=== PATIENT | female | born 1955 | race Caucasian/White ===

== ENCOUNTER 2020-07-31 10:17 | Outpatient (CLI) | payer MEDICARE, SELFPAY | END 2020-07-31 10:18 | disposition home or self-care (01) | LOC: ANHCOVIDVC 10:17 | PROVIDERS: PCP Nurse Practitioner Adult Health | DX: Z23 Encounter for immunization (principal) | CPT/HCPCS: 0001A; 91300 ==

== ENCOUNTER 2020-08-21 10:15 | Outpatient (CLI) | payer MEDICARE, SELFPAY | END 2020-08-21 10:16 | disposition home or self-care (01) | PROVIDERS: PCP Nurse Practitioner Adult Health | DX: Z23 Encounter for immunization (principal) | CPT/HCPCS: 0002A; 91300 ==

== ENCOUNTER 2020-12-11 14:55 | Outpatient (CLI) | payer MEDICARE, SELFPAY ==
--- NOTE | ~2020-12-11 | MM_ITS ---
EXAMINATION: MM screening wendy BI w ramakrishna HISTORY: Screening mammogram TECHNIQUE: Craniocaudal and mediolateral oblique 3-D tomosynthesis images were obtained and synthetic 2-D images were generated. CAD analysis was submitted and interpreted. COMPARISON: 09/19/2018, 02/08/2017 bilateral digital screening mammogram examinations BREAST PARENCHYMAL COMPOSITION: The breasts are heterogeneously dense, which may obscure small masses . FINDINGS: New circumscribed 6 mm opacity situated in the anterior upper left breast on MLO view. Diag nostic left mammogram is recommended, with ultrasound if required. Otherwise there is no evidence of suspicious mass, calcification, or architectural distortion to sug gest malignancy in either breast. There has been no other suspicious interval change. IMPRESSION: 1. New 6 mm upper anterior left breast 6 mm circumscribed opacity 2. Diagnostic left mammogram is recommended, with ultrasound if required BI-RADS Category 0: Incomplete: Needs additional imaging evaluation. Reviewed, dictated and finalized at location A.
== END 2020-12-11 14:56 | disposition home or self-care (01) ==
LOC: ANHIMG 14:58
PROVIDERS: PCP Nurse Practitioner Adult Health; Visit Provider Physician Assistant
DX: Z12.31 Encounter for screening mammogram for malignant neoplasm of breast (principal); R92.8 Other abnormal and inconclusive findings on diagnostic imaging of breast
CPT/HCPCS: 77063; 77067

== ENCOUNTER 2021-01-13 13:50 | Outpatient (CLI) | payer MEDICARE, SELFPAY ==
--- NOTE | ~2021-01-13 | MM_ITS ---
EXAMINATION: MM diagnostic wendy LT w ramakrishna HISTORY: Follow-up left breast asymmetry TECHNIQUE: Additional 3-D tomosynthesis images of the left breast were performed and synthetic 2-D im ages were generated. CAD analysis was submitted and interpreted. COMPARISON: 12/11/2020 BREAST PARENCHYMAL COMPOSITION: Breast composed of scattered areas of fibroglandular density. FINDINGS: Focal asymmetry superior aspect the left breast on MLO view corresponds to a mole indicated by radiopaque marker on current examination. No suspicious masses, calcifications or architectural d istortion are identified in the left breast to suggest malignancy. IMPRESSION: 1. No mammographic evidence for malignancy in the left breast. 2. Routine yearly screening mammogram and regular clinical breast examination are recommended. BI-RADS Category 2: Benign finding(s). Reviewed, dictated and finalized at location A. IMPRESSION: 1. No mammographic evidence for malignancy in the left breast. 2. Routine yearly screening mammogram and regular clinical breast examination a re recommended. BI-RADS Category 2: Benign finding(s).
== END 2021-01-13 13:51 | disposition home or self-care (01) ==
LOC: ANHIMG 13:53
PROVIDERS: PCP Nurse Practitioner Adult Health; Visit Provider Nurse Practitioner Adult Health
DX: R92.8 Other abnormal and inconclusive findings on diagnostic imaging of breast (principal)
CPT/HCPCS: 77061; 77065; G0279

== ENCOUNTER → 2021-04-02 13:59 | Outpatient (CLI) | payer MEDICARE, SELFPAY ==
--- NOTE | ~2021-04-02 | US_ITS ---
EXAMINATION: US pelvic complete w TV DATE: 04/02/2021 14:30 INDICATION: Postmenopausal bleeding TECHNIQUE: Multiple transabdominal and endovaginal sonographic images of the pelvis were obtained. COMPARISON: None. FINDINGS: The uterus measures 7.3 x 3.7 x 4.6 cm. The endometrial complex measures 7 mm in thickness. The righ t ovary measures 2.5 x 1.2 x 1.5 cm. The left ovary measures 1.7 x 1.2 x 1.9 cm. Vascular flow seen a t both ovaries on color Doppler. There is no free fluid in the pelvis. IMPRESSION: 1. Thickened endometrial complex measuring 7 mm in thickness. Differential would include endometrial hyperplasia, endometrial carcinoma, polyp or submucosal fibroid. Given the coinciding history of post menopausal bleeding would recommend hysteroscopy for further evaluation. Reviewed, dictated and finalized at location A. 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 Thickened endometrial complex measuring 7 mm in thickness. Differential woul d include endometrial hyperplasia, endometrial carcinoma, polyp or submucosal f ibroid. Given the coinciding history of postmenopausal bleeding would recommend hysteroscopy for further evaluation.
== END ==
PROVIDERS: PCP Physician Assistant; Visit Provider Physician Assistant
DX: Z78.0 Asymptomatic menopausal state (principal)
CPT/HCPCS: 76830; 76856

== ENCOUNTER → 2021-06-25 10:10 | Outpatient (CLI) | payer MEDICARE, SELFPAY ==
--- NOTE | ~2021-06-25 | DEXA_ITS ---
Bone Density Report Name: JIMY MULLINS Age: 66 Sex: Female Ethnicity: White Date of : 1955 Indication: postmenopausal; screening for osteoporosis; height loss; prior fracture; Referring Provider: AUTUMN, RENAY Bowman Study: Bone densitometry was performed. Exam Date: June 25, 2021 Accession number: [id number] Bone Density: Region BMD T-score Z-score Classification AP Spine (L1-L4) 0.836 -1.9 0.0 Osteopenia Femoral Neck (Left) 0.673 -1.6 0.1 Osteopenia Total Hip (Left) 0.767 -1.4 -0.1 Osteopenia Femoral Neck (Right) 0.655 -1.7 -0.1 Osteopenia Total Hip (Right) 0.730 -1.7 -0.4 Osteopenia Total Hip Mean 0.749 -1.6 -0.3 Osteopenia World Health Organization criteria for BMD impression classify patients as: Normal (T-score at or above -1.0), Osteopenia (T-score between -1.0 and -2.5), or Osteoporosis (T-score at or below -2.5). 10-year Fracture Risk(1): Major Osteoporotic Fracture 15% Hip Fracture 2.2% Reported Risk Factors: [place] (), Neck BMD=0.655, BMI=21.0, previous fracture (1) FRAX(R) Version 3.08. Fracture probability calculated for an untreated patient. Fracture probability may be lower if the patient has received treatment. Previous Exams: Region Exam Age BMD T-score BMD Change BMD Change Date g/cm2 vs Baseline vs Previous AP Spine(L1-L4) 06/25/2021 66 0.836 -1.9 -0.180 -0.180 01/08/2003 47 1.015 -0.3 Total Hip(Left) 06/25/2021 66 0.767 -1.4 -0.128 -0.128 01/08/2003 47 0.895 -0.4 Total Hip(Right) 06/25/2021 66 0.730 -1.7 -0.164 -0.164 01/08/2003 47 0.894 -0.4 *Denotes significance at 95% confidence level, LSC for AP Spine = 0.022 g/cm2, LSC for Total Hip = 0.027 g/cm2 Clinical Information Provided by Patient: Has had a low trauma fracture Has used the following medications: Vitamin D, Calcium Patient maximum height was 62 Menopause Age: 49 Drinks caffeinated beverages Onset of menses at age 11 Number of children 2 Impression: The patient has low bone mass, based on the Total Spine T-score. The patient has an estimated ten-year risk of hip fracture of 2.2% and an estimated ten-year risk of major fracture of 15%, based on the WHO FRAX algorithm. The patient has risk factors, including: previous fracture. No significant bone loss was observed. Discussion: BONE DENSITY IS LOW AT ONE OR MORE SKELETAL SITES. This patient's lowest T-sc
== END ==
PROVIDERS: PCP Physician Assistant; Visit Provider Physician Assistant
DX: Z78.0 Asymptomatic menopausal state (principal); M85.89 Other specified disorders of bone density and structure, multiple sites
CPT/HCPCS: 77080

== ENCOUNTER 2022-04-29 15:29 | Outpatient (CLI) | payer MEDICARE, SELFPAY ==
--- NOTE | ~2022-04-29 | MM_ITS ---
EXAMINATION: MM screening wendy BI w ramakrishna HISTORY: Screening TECHNIQUE: Craniocaudal and mediolateral oblique 3-D tomosynthesis images were obtained and synthetic 2-D images were generated. CAD analysis was submitted and interpreted. COMPARISON: Comparison to multiple prior studies sequentially, with oldest reviewed study dated 02/08. BREAST PARENCHYMAL COMPOSITION: The breasts are heterogeneously dense, which may obscure small masses . FINDINGS: There is no evidence of suspicious mass, calcification, or architectural distortion to sugg est malignancy in either breast. There has been no suspicious interval change. IMPRESSION: 1. No mammographic evidence of malignancy. 2. Recommend routine screening mammography in one year. BI-RADS Category 1: Negative . Reviewed, dictated and finalized at location B. 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
== END 2022-04-29 15:30 | disposition home or self-care (01) ==
PROVIDERS: PCP Physician Assistant; Visit Provider Physician Assistant
DX: Z12.31 Encounter for screening mammogram for malignant neoplasm of breast (principal)
CPT/HCPCS: 77063; 77067

== ENCOUNTER → 2023-06-29 10:45 | Outpatient (CLI) | payer MEDICARE, SELFPAY ==
--- NOTE | ~2023-06-29 | US_ITS ---
Pelvic ultrasound. Clinical History: Endometrial cells on cervical cytology Technique: Realtime transabdominal and transvaginal scanning of the pelvis was performed. Color flow Doppler and Doppler spectral analysis were performed. Findings: The uterus is retroverted. The endometrial stripe has a thickness of 10 mm. No focal mass is identified. The right ovary measures 2.5 x 1.5 x 2.2 cm. No significant right ovarian or adnexal mass is seen. The left ovary measures 2.2 x 2.2 x 1.4 cm. No significant left ovarian or adnexal mass is seen. There is no evidence of free fluid in the cul de sac. Impression: Probable thickening of the endometrial stripe towards the fundus. Endometrial hyperplasia or endometr ial neoplasm are considerations. Reviewed, dictated and finalized at [facility]. 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 Endometrial h yperplasia or endometrial neoplasm are considerations.
== END ==
PROVIDERS: PCP Physician Assistant; Visit Provider Physician Assistant
DX: R87.618 Other abnormal cytological findings on specimens from cervix uteri (principal); R93.89 Abnormal findings on diagnostic imaging of other specified body structures
CPT/HCPCS: 76830; 76856

== ENCOUNTER 2023-09-08 00:50 | Day surgery (SDC) | payer MEDICARE, SELFPAY ==
--- NOTE | 2023-09-02 15:50 | PC.NURSE ---
Report to the Outpatient Waiting Room, entrance under the green pavilion located off [facility], at time __8:00AM on date ___09/08/23____. Planned Procedure Time: __10:00AM . Time changes happen often and if your time is changed the preop area will call you the afternoon before. - You and your visitor will be asked to self-screen and do not enter if you have any COVID symptoms. - A mask is optional within the hospital at this time. Patients may have clear liquids (water, carbonated beverages, clear teas, apple juice) until 3 hours prior to surgery with a maximum of 20 ounces. - No food from midnight until time of surgery. Take the following medications with a SIP of water the morning of surgery: ___LEVOTHYROXINE DO NOT STOP ANY OF YOUR OTHER PRESCRIPTION MEDICATIONS PRIOR TO SURGERY ?EXCEPT THE FOLLOWING Medications to discontinue per physician ___HOLD ALL VITAMINS/SUPPLEMENTS 3 DAYS PRE-OP PER ANESTHESIA Date to take last dose 09/04/23 Please no make-up, nail uzbek, hairspray, perfume, deodorant, or body powder the day of surgery. No jewelry (including any body piercings) or valuables the day of surgery, leave them at home. Please take a shower or bath the night before, or the morning of, surgery with an antibacterial soap. Wear comfortable, loose fitting clothing. Children are encouraged to wear pajamas. - Jewelry must be removed prior to entering the operating room. Rings and piercings that are not removed may be cut off. - The hospital will not accept responsibility for valuables. - Please leave all valuables, including medications, at home the day of surgery. If you are going home after surgery, a licensed driver helper must drive you home. - NO public transportation without another adult if you receive anesthesia. - We recommend that an adult stay with you for 24 hours following discharge. - We also recommend that you do not drive, make important decision, drink alcoholic beverages, or take any drugs that were not prescribed by your health care provider for at least 24 hours after your discharge time. For Pediatric surgeries, we recommend two adults accompany the child home. Follow any additional instructions given to you from your surgeon. If you or anyone in your household have experienced Covid symptoms in the past week, please notify your surgeon or the nurse liaison at the phone number below for possible testing. Telephone instructions given to ___PATIENT and asked if any additional questions and then verbalized understanding. Patient advised to call surgeon office or pre surgery nurse liaison [phone] if any additional questions.
--- NOTE | 2023-09-08 10:41 | PM.IMHP ---
H&P: HPI History of Present Illness Date/Time: 09/08/23 10:41 Chief Complaint: Thickened endometrial stripe Narrative: Patient with thickened endometrial stripe of 10mm on recent ultrasound for which she was undergoing serial assessment of endometrial lining by PCP. She has been informed of recommendation for endometrial sampling and options for assessment and has opted for D and C hysteroscopy. Review of Systems Review of Systems: All systems reviewed & are unremarkable except as noted in HPI and below Cardiovascular: Cardiovascular: Reports no additional cardiovascular complaints, Denies chest pain and Denies dyspnea Respiratory: Respiratory: Reports no additional respiratory complaints and Denies dyspnea Gastrointestinal: Gastrointestinal: Reports abdominal pain, Denies change in bowel habits, Denies diarrhea, Denies nausea and Denies vomiting Genitourinary: Genitourinary: Reports pelvic pain Musculoskeletal: Musculoskeletal: Reports back pain Integumentary/Breasts: Skin/Breast: Reports system reviewed and no additional complaints, except as docu Neurologic: Reports system reviewed and no additional complaints, except as documented PMFSH Past Medical History Medical History Hypothyroidism Osteopenia Vaginal delivery x2 Surgical History Surgical History History of cholecystectomy History of dilation and curettage 10-28-18 History of hysteroscopy 10-28-18 History of surgery of uterus 10-28-18, removal of uterine fibroid and polyp Family History Family History Mother Family history of diabetes mellitus in first degree relative Father Lung cancer Social History Social History Smoking status: Never smoker Alcohol intake: current Drinks per week: 7 Substance use: never Do You Feel Safe in your Home?: Yes Lack of Transportation: No Lack of Food: Never True Current Housing: I Have Housing Concerned About Future Housing: No Difficulty Paying Gas/Electric Bills: No Difficulty Paying for Meds: No Currently Unemployed: No Education: High School Diploma/GED Difficulty w/ Childcare or Family Care: No Living arrangements: with family Additional living arrangements comments: HUSB Spiritual care concerns: No Agree to blood products: Yes Meds Home Medications and Allergies Home Medications Medication Instructions Recorded Confirmed Type levothyroxine 25 mcg capsule 25 mcg PO QAM 05/28/21 09/02/23 History ospemifene 60 mg tablet (Osphena) 60 mg PO Q2-3H 05/28/21 09/02/23 History ascorbic acid (vitamin C) 1,000 mg 1 g PO DAILY 09/02/23 09/02/23 History capsule calcium carbonate 600 mg-vitamin 1 tablet PO DAILY 09/02/23 09/02/23 History D3 5 mcg (200 unit) tablet cholecalciferol (vitamin D3) 25 25 mcg PO DAILY 09/02/23 09/02/23 History mcg (1,000 unit) capsule multivitamin 1 tablet PO DAILY 09/02/23 09/02/23 History omega-3 fatty acids-vitamin E 1 cap PO DAILY 09/02/23 09/02/23 History 1,000 mg capsule Allergies Allergy/AdvReac Type Severity Reaction Status Date / Time No Known Allergies Allergy Verified 09/02/23 15:32 Exam Const: Orientation/consciousness: oriented to person and oriented to place HENMT: Head: normal to inspection Eyes: General: appearance normal, both eyes and all related structures Resp: Effort & Inspection: normal respiratory effort Auscultation: clear to auscultation bilaterally Cardio: Rate: regular rate Rhythm: regular rhythm GI: Inspection: normal to inspection GI Palp: No Rebound tenderness present Neuro: General: oriented to person and oriented to place Cognition (Neuro): normal cognition Extrem: General: normal to inspection Psych: Appearance: grossly normal and well kempt Ass
[2023-09-08] MEDS: LACTATED RINGERS 1,000 ML 30 ML IV CONT (10:58)
[2023-09-08] MEDS: ACETAMINOPHEN 500 MG TABLET 1000 MG PO (10:59)
[2023-09-08 11:02] VITALS: BP 123/66; PULSE 73; RESP 16; TEMP 36.8; O2SAT 100
--- NOTE | 2023-09-08 11:18 | WPDHPUPDATE1 ---
History and Physical Update Update Date/Time: 09/08/23 11:18 History and Physical has been reviewed, including an updated exam of the patient. There are NO changes in the patient's condition. Risks, benefits, and alternatives have been discussed and questions answered. Patient agrees to proceed with procedure.
--- NOTE | 2023-09-08 11:26 | WPDANESEPPF ---
Anes - Initial Pre Proc Eval Procedure: Operation Date: 09/08/23 12:00 Proposed Procedures p Hysteroscopy, Dilation and Curettage with Removal of Any Endometrial Lesions if Necessary - Deonte Chaves MD Date/Time: 09/08/23 11:26 Surgeon: Deonte Chaves MD Pre Op Diagnosis: Thickened Endometrium Lining Patient Data Age: 68 Gender: F Height: 1.55 m Weight: 48.4 kg Last Vital Signs Temp 98.3 F 09/08/23 11:02 Pulse 73 09/08/23 11:02 Resp 16 09/08/23 11:02 BP 123/66 09/08/23 11:02 Pulse Ox 100 09/08/23 11:02 O2 Del Method Room Air 09/08/23 11:02 Allergies Allergy/AdvReac Type Severity Reaction Status Date / Time No Known Allergies Allergy Verified 09/08/23 10:50 Home Medications Medication Instructions Recorded Confirmed Type levothyroxine 25 mcg capsule 25 mcg PO QAM 05/28/21 09/08/23 History ospemifene 60 mg tablet (Osphena) 60 mg PO Q2-3H 05/28/21 09/08/23 History ascorbic acid (vitamin C) 1,000 mg 1 g PO DAILY 09/02/23 09/08/23 History capsule calcium carbonate 600 mg-vitamin 1 tablet PO DAILY 09/02/23 09/08/23 History D3 5 mcg (200 unit) tablet cholecalciferol (vitamin D3) 25 25 mcg PO DAILY 09/02/23 09/08/23 History mcg (1,000 unit) capsule multivitamin 1 tablet PO DAILY 09/02/23 09/08/23 History omega-3 fatty acids-vitamin E 1 cap PO DAILY 09/02/23 09/08/23 History 1,000 mg capsule Patient hx anesthesia problems: none Family hx anesthesia problems: none Results Review: All pre-operative results and documents have been reviewed as part of the pre-operative evaluation. [facility] Past Medical History Medical History Hypothyroidism Osteopenia Vaginal delivery x2 Surgical History Surgical History History of cholecystectomy History of dilation and curettage 10-28-18 History of hysteroscopy 10-28-18 History of surgery of uterus 10-28-18, removal of uterine fibroid and polyp Family History Family History Mother Family history of diabetes mellitus in first degree relative Father Lung cancer Social History Social History Smoking status: Never smoker Alcohol intake: current Drinks per week: 7 Substance use: never Do You Feel Safe in your Home?: Yes Lack of Transportation: No Lack of Food: Never True Current Housing: I Have Housing Concerned About Future Housing: No Difficulty Paying Gas/Electric Bills: No Difficulty Paying for Meds: No Currently Unemployed: No Education: High School Diploma/GED Difficulty w/ Childcare or Family Care: No Living arrangements: with family Additional living arrangements comments: VEGA Spiritual care concerns: No Agree to blood products: Yes Anes - Eval Final PreProcedure Day of Procedure 09/08/23 11:26 Patient weight: normal Heart: regular rate and rhythm Lungs: clear to auscultation Airway: Mallampati scale class II Neurological: alert and oriented Last oral intake: >/= 8 hours ASA classification: II Emergent: no Anesthetic plan: proceed Anesthesia type and monitoring: general GIVS and standard monitoring Results Review: All pre-operative results and documents have been reviewed as part of the pre-operative evaluation. Active w cardio, walking, wts, no cp or sob w activity. Informed Consent: The patient's anesthetic plan and its attendant risks and benefits were discussed with the patient/family/POA. Questions were solicited and answers provided to the satisfaction of the patient/family/POA.
[2023-09-08] MEDS: ceFAZolin 2 GM/D5W 50 ML 2 GM/50 ML BAG IVPB (12:24)
[2023-09-08] MEDS: LIDOCAINE HCL 1% LOCAL INJ 10 ML VIAL INFILTRATE (12:35)
[2023-09-08 13:04] VITALS: BP 115/75; PULSE 58; RESP 12; O2SAT 99
[2023-09-08 13:30] VITALS: BP 104/69; PULSE 59; RESP 12; O2SAT 100
--- NOTE | 2023-09-08 13:42 | P.OP_ITS ---
Procedure Note - Detailed Date of Procedure 09/08/23 Pre-op Diagnosis Thickened Endometrium Lining Post-op Diagnosis Same Procedure Performed Dilation and curettage hysteroscopy diagnostic and removal of endometrial lesion. Surgeon Deonte Chaves MD Anesthesia MAC and Local Indications Thickened endometrial stripe. Findings Uterus sound to 7 cm. The uterine cavity was atrophic. Area at posterior mid uterine wall with a flat polyp. Removed with Aveta instrument. Description of Procedure After form consent was obtained patient was taken to the operating room and adequate IV sedation was administered. She was placed in high lithotomy position and prepped and draped in sterile fashion. Attention was turned to the vagina. Speculum inserted. Single-tooth tenaculum placed on anterior lip of the cervix. 1% lidocaine was injected at the cervical vaginal interface at 2, 5, 8 and 10 oclock position. The small dilator was inserted. The uterine sound was inserted and sounded to 7 cm. Using hydrodilation the hysteroscope was inserted. The cavity appeared mostly atrophic except a flat broad polyp at posterior wall of mid uterus. The Aveta was used to remove the lesion. A curettage was then performed and there was minimal tissue obtained. The single- tooth tenaculum was removed. Hemostasis was noted. The speculum was removed. The patient tolerated procedure well. Estimated Blood Loss 5 Drains No Packing No Pathology Yes ( Scant endometrial curettings) Complications No immediate complications Condition Stable Disposition PACU [facility] Billing Surgery - Charge Forward: Surgery Billing
[2023-09-08 14:00] VITALS: BP 119/69; PULSE 53; RESP 14
== END 2023-09-08 14:12 | disposition home or self-care (01) ==
PROVIDERS: PCP Physician Assistant; Visit Provider Obstetrics & Gynecology
PROC: 0U5B8ZZ Destruction of Endometrium, Via Natural or Artificial Opening Endoscopic (ICD-10-PCS; CPT 58563; principal; 2023-09-08 12:00)
DX: N85.8 Other specified noninflammatory disorders of uterus (principal); E03.9 Hypothyroidism, unspecified
CPT/HCPCS: 58558; 88305; A9270; J0690; J1100; J2250; J2405; J2704; J3010; J7120

== ENCOUNTER 2023-09-29 10:23 | Outpatient (CLI) | payer MEDICARE, SELFPAY ==
--- NOTE | ~2023-09-29 | DEXA_ITS ---
Bone Density Report Name: JIMY MULLINS Age: 68 Sex: Female Ethnicity: White Date of : 1955 Indication: osteopenia; height loss; prior fracture; postmenopausal Referring Provider: AUTUMN, RENAY Bowman Study: Bone densitometry was performed. Exam Date: September 29, 2023 Accession number: [id number] Bone Density: Region BMD T-score Z-score Classification AP Spine (L1-L4) 0.849 -1.8 0.3 Osteopenia Femoral Neck (Left) 0.657 -1.7 0.0 Osteopenia Total Hip (Left) 0.756 -1.5 0.0 Osteopenia Femoral Neck (Right) 0.619 -2.1 -0.3 Osteopenia Total Hip (Right) 0.692 -2.0 -0.6 Osteopenia Total Hip Mean 0.724 -1.8 -0.3 Osteopenia World Health Organization criteria for BMD impression classify patients as: Normal (T-score at or above -1.0), Osteopenia (T-score between -1.0 and -2.5), or Osteoporosis (T-score at or below -2.5). 10-year Fracture Risk(1): Major Osteoporotic Fracture 17% Hip Fracture 3.4% Reported Risk Factors: [place] (), Neck BMD=0.619, BMI=20.8, previous fracture (1) FRAX(R) Version 3.08. Fracture probability calculated for an untreated patient. Fracture probability may be lower if the patient has received treatment. Previous Exams: Region Exam Age BMD T-score BMD Change BMD Change Date g/cm2 vs Baseline vs Previous AP Spine(L1-L4) 09/29/2023 68 0.849 -1.8 -0.167 0.013 06/25/2021 66 0.836 -1.9 -0.180 -0.180 01/08/2003 47 1.015 -0.3 Total Hip(Left) 09/29/2023 68 0.756 -1.5 -0.139 -0.011 06/25/2021 66 0.767 -1.4 -0.128 -0.128 01/08/2003 47 0.895 -0.4 Total Hip(Right) 09/29/2023 68 0.692 -2.0 -0.201 -0.037* 06/25/2021 66 0.730 -1.7 -0.164 -0.164 01/08/2003 47 0.894 -0.4 *Denotes significance at 95% confidence level, LSC for AP Spine = 0.022 g/cm2, LSC for Total Hip = 0.027 g/cm2 Clinical Information Provided by Patient: Has had a low trauma fracture Has used the following medications: Vitamin D, Calcium Patient maximum height was 62 Menopause Age: 49 Drinks caffeinated beverages Onset of menses at age 11 Number of children 2 Impression: The patient has low bone mass, based on the Right Femoral Neck T-score. The patient has an estimated ten-year risk of hip fracture of 3.4% and an estimated ten-year risk of major fracture of 17%, based on the WHO FRAX algorithm. The patient has r
--- NOTE | ~2023-09-29 | MM_ITS ---
EXAMINATION: MM screening wendy BI w ramakrishna HISTORY: Screening mammogram TECHNIQUE: Craniocaudal and mediolateral oblique 3-D tomosynthesis images were obtained and synthetic 2-D images were generated. CAD analysis was submitted and interpreted. COMPARISON: 04/29/2022 bilateral screening mammogram 01/13/2021 diagnostic left mammogram 12/11/2020 bilateral screening mammogram BREAST PARENCHYMAL COMPOSITION: The breasts are heterogeneously dense, which may obscure small masses . FINDINGS: There is no evidence of suspicious mass, calcification, or architectural distortion to sugg est malignancy in either breast. There has been no suspicious interval change. IMPRESSION: 1. No mammographic evidence of malignancy. 2. Recommend routine screening mammography in one year. BI-RADS Category 1: Negative Reviewed, dictated and finalized at location B.
== END 2023-09-29 10:24 ==
LOC: MICIMG 10:24
PROVIDERS: PCP Physician Assistant; Visit Provider Physician Assistant
DX: Z12.31 Encounter for screening mammogram for malignant neoplasm of breast (principal); M85.89 Other specified disorders of bone density and structure, multiple sites; Z78.0 Asymptomatic menopausal state
CPT/HCPCS: 77063; 77067; 77080

== ENCOUNTER 2025-02-05 08:03 | Outpatient (CLI) | payer MEDICARE, SELFPAY ==
--- NOTE | ~2025-02-05 | MM_ITS ---
EXAMINATION: MM screening wendy BI w ramakrishna HISTORY: Screening TECHNIQUE: Craniocaudal and mediolateral oblique 3-D tomosynthesis images were obtained and synthetic 2-D images were generated. CAD analysis was submitted and interpreted. COMPARISON: Comparison to multiple prior studies sequentially, with oldest reviewed study dated , 02/08/2017 BREAST PARENCHYMAL COMPOSITION: The breasts are heterogeneously dense, which may obscure small masses. FINDINGS: There is no evidence of suspicious mass, calcification, or architectural distortion to suggest malignancy in either breast. IMPRESSION: 1. No mammographic evidence of malignancy. 2. Recommend routine screening mammography in one year. BI-RADS Category 1: Negative Reviewed, dictated and finalized at location B.
--- OUTSIDE RECORDS SUMMARY | 2025-02-05 08:34 | XMS_ITS | Encounter Summary ---
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 Name Role Phone Camille Lang Primary Care Provider [phone] Encounter Details Date Type Department Care Team (Late st Contact Info) Description 08/23/2024 [facility] Message [address] [id number] [facility] Social History Tobacco Use Types Packs/Day Years Used Date Smoking Tobacco: Never Passive Smoke Exposure: Never Smokeless Tobacco: Never Alcohol Use Standard Drinks/Week Comments Yes 0 (1 standard drink = 0.6 oz pur e alcohol) socially PHQ-2 Answer Date Recorded Patient Health Questionnaire-2 Score 0 09/21/2023 Comments No Sex and Gender Information Value Date Recorded Sex Assigned at Not on file Legal Sex Female 2:33 PM CDT Gender Identity Not on file Sexual Orientation Not on file documented as of this encounter Plan of Treatment Not on file documented as of this encounter Visit Diagnoses Not on filedocumented in this encounter Additional Health Concerns Assessment Noted Time PHQ-9 Depression Total Score: 0 03/17/20 21 12:21 PM CDT documented as of this encounter Care Teams Wafer Fabrication Operator Relationship Specialty [place] [address] [place] [address] PCP - General PHYSICIAN PARK AIDE 03/20/20 documented as of this encounter
--- OUTSIDE RECORDS SUMMARY | 2025-02-05 08:34 | XMS_ITS | Encounter Summary ---
Author Organization [facility] Address [address] [place] [address] Care Team Providers Care Oil Well Service Operator Name Role Phone Camille Lang Primary Care Provider [phone] Encounter Details Date Type Department Care Team (Late st Contact Info) Description 10/05/2023 Connect Controls Message [facility] Family & Internal Medicine [facility] [address] [place] [address] [facility] Provider Mammogram & bone density Social History Tobacco Use Types Packs/Day Years [...] documented as of this encounter Care Teams Oil Well Service Operator Relationship Specialty [place] [address] [place] [address] PCP - General PHYSICIAN MACHINE OPERATOR PACKAGING 03/20/20 documented as of this encounter
--- OUTSIDE RECORDS SUMMARY | 2025-02-05 08:34 | XMS_ITS | Encounter Summary ---
Author Organization [facility] Address [address] [place] [address] Care Team Providers Care Retail Branch Manager Name Role Phone Camille Lang Primary Care Provider [phone] Encounter Details Date Type Department Care Team (Late st Contact Info) Description 09/17/2023 Freshplum Message Enc [facility] Medical Group Family & Internal Medicine [facility] [address] [place] [address] [place] [address] [place] [address] back/hip x-ray Social History Tobacco Use Types Packs/Day Years [...] documented as of this encounter Care Teams Retail Branch Manager Relationship Specialty [place] [address] [place] [address] PCP - General PHYSICIAN TOOL GRINDING TECHNICIAN 03/20/20 documented as of this encounter
--- OUTSIDE RECORDS SUMMARY | 2025-02-05 08:34 | XMS_ITS | Clinical Summary ---
Author Organization [facility] Address [address] [place] [address] Care Team Providers Care Clean Rice Grader And Reel Tender Name Role Phone Camille Lang Primary Care Provider [phone] Allergies No known active allergies Medications OSPHENA 60 MG TabIndications:Atr ophic vaginitis Take 1 tablet by mouth daily. 90 tablet 3 03/26/20 23 Active ciclopirox (PENLAC) 8 % solution Apply topically nightly at bedtime. Apply over nail and surrounding skin. Apply daily over previous coat. After seven (7) days, may remove with alcohol and continue cycle. Active methylPREDNISolone , IBIS, (MEDROL DOSEPAK) 4 MG tabletIndications: Chronic left-sided low back pain with left-sided sciatica,Left hip pain 6 TABLETS ON DAY ONE, 5 TABLETS DAY TWO, 4 TABLETS DAY THREE, 3 TABLETS DAY FOUR, 2 TABLETS DAY FIVE, AND 1 TABLET DAY SIX 1 each 09/21/19 24 Active Additional Information Patient not taking.Reported on 04/19/2024 levothyroxine (SYNTHROID) 50 MCG tabletIndications: Acquired hypothyroidism Take 1/2 a tablet (25mcg) daily. 90 tablet 11/04/19 25 Active Active Problems No known active problems Encounters Date Type Department Care Team Description 12/26/2024 Scan [facility] INFO SRVCS Scanned, Doc [facility] from Last 3 Months Immunizations Immunization Administration Dates Next Due FLUAD (IIV, Trivalent, 0.5 M L Pre-filled Syringe) 03/13/2024 Fluad influenza vaccine, Crist[place] drivalent (aIIV4), Inactivated, adjuvanted, preservative free, 0.5 mL,IM use 02/27/2022,03/03/2021 Fluzone High Dose - >Age 65 (Prefilled Syringe) 03/15/2020,03/19/2019 Influenza (Generic) 02/29/2016 Influenza Adult (Generic) 03/12/2023,,02/26/2017,2015,02/14/2015,02/16/2013 PFIZER COVID-19 (ORIGINAL FORMULATION, PURPLE CAP) mRNA, LNP-S, PF, 30 MCG/0.3 ML DOSE 08/21/2020,07/31/2020 PFIZER COVID-19 BIVALENT (12 +) mRNA, LNP-S, PF, 30 MCG/0.3 ML DOSE 03/25/2022 Pneumococcal (Pneumovax 23) 12/25/2020 Pneumococcal (Prevnar 13) 10/23/2019 Td (Tenivac) preservative free 03/21/2020 Family History Medical History Relation Comments Cancer Brother colon ca Cancer Father Dementia Mother Relation Status Comments Brother Father Mother Social History Tobacco Use Types Packs/Day Years Used Date Smoking Tobacco: Never Passive Smoke Exposure: Never Smokeless Tobacco: Never Tobacco Cessation:Counseling Given: No Alcohol Use Standard Drinks/Week Comments Yes 0 (1 standard drink = 0.6 oz pur e alcohol) socially PHQ-2 Answer Date Recorded Patient Health Questionnaire-2 Score 0 09/21/2023 Comments No Sex and Gender Information Value Date Recorded Sex Assigned at Not on file Legal Sex Female 2:33 PM CDT Gender Identity Not on file Sexual Orientation Not on file Last Filed Vital Signs Vital Sign Reading Time Taken Comments Blood Pressure 122/72 04/19/2024 6:58 AM CHILLER TENDER Pulse 78 04/19/2024 6:58 AM CHILLER TENDER Temperature 36.4 C (97.6 F) 04/19/2024 6:58 AM CHILLER TENDER Respiratory Rate 20 04/19/2024 6:58 AM CHILLER TENDER Oxygen Saturation 100% 04/19/2024 6:58 AM CHILLER TENDER Inhaled Oxygen Concentration - - Weight 47.2 kg (104 lb) 04/19/2024 6:58 AM CHILLER TENDER Height 153.7 cm (5' 0.5) 04/19/2024 6:58 AM CHILLER TENDER Body Mass Index 19.98 04/19/2024 6:58 AM CHILLER TENDER Plan of Treatment Health Maintenance Due Date Last Done Comments Hepatitis C 01/29/1972 Zoster Vaccines (1 of 2) 01/29/2004 Annual Medicare Wellness Visit 2019 DTaP, Tdap and Td Vaccines (1 - Tdap) 03/22/2020 03/21/2020 PHQ-2 (Physician [place]) 05/17/2024 09/21/2023 COVID-19 Vaccine ( season) 2025 03/28/2023, 03/25/2022, 08/21/2020, Additional history exists Mammogram Screening 09/28/2025 09/29/2023, 04/29/2022, 01/13/2021, Additional history exists Colorectal Cancer Screening FIT-DNA (3 Years) 04/02/2026 04/02/2023, 04/02/2023, 11/02/2019, Additional history exists RSV Immunization or 60+ Years (1 - 1-dose 75+ series) 2029 Pneumococcal Vaccine: 50+ Years Completed 12/25/2020, 10/23/2019 Dexa Scan (General) Completed 09/29/2023, 06/25/2021, 06/25/2021, Additional history exists Meningococcal B Vaccine Aged Out No l onger eligible based on patient's age to complete this topic Meningococcal Vaccine Aged Out No paulo eugenie eligible based on patient's age to complete this topic RSV Immunizations Under 20 Months Aged Out No longer eligible based on patient's age to complete this topic Procedures Procedure Name Priority Date/Time Associated Diagnosis Comments BONE DENSITY GENERIC (SCAN ORDER) 09/29/2023 MAMMOGRAM GENERIC (SCAN ORDER) 09/29/2023 COLOGUARD (EXACT SCIENCE) Routine 04/02/2023 6:50 AM CHILLER TENDER Screen for colon cancer from Last 3 Months or Most Recently Relevant to Health Maintenance Results * BONE DENSITY GENERIC (SCAN ORDER) (09/29/2023) Anatomical Region Laterality Modality Other 09/29/2023 [facility] Scanned SCANNING Final Resu lt * MAMMOGRAM GENERIC (SCAN ORDER) (09/29/2023) Anatomical Region Laterality Modality Other 09/29/2023 [facility] Scanned SCANNING Final Resu lt * COLOGUARD (EXACT SCIENCE) (04/02/2023 6:50 AM CHILLER TENDER) COLOGUARD RESULT Negative Negative [employer] [employer] (CLIA #:[id number]) Comment: NEGATIVE TEST RESULT. A negative Cologuard result indicates a low likelihood that a colorectal cancer (CRC) or advanced adenoma (adenomatous polyps with more advanced pre-malignant features) is present. The chance that a person with a negative Cologuard test has a colorectal cancer is less than 1 in 1500 (negative predictive value >99.9%) or has an advanced adenoma is less than 5.3% (negative predictive value 94.7%). These data are based on a prospective cross-sectional study of 10,000 individuals at average risk for colorectal cancer who were screened with both Cologuard and colonoscopy. (Valarie Merida. et al, N Engl J Med 2014;370(14):8350-9203) The normal value (reference range) for this assay is negative. COLOGUARD RE-SCREENING RECOMMENDATION: Periodic colorectal cancer screening is an important part of preventive healthcare for asymptomatic individuals at average risk for colorectal cancer. Following a negative Cologuard result, the [place] Cancer Society and U.S. Multi-Society Task Force screening guidelines recommend a Cologuard re-screening interval of 3 years. References: [place] [employer] Guideline for Colorectal Cancer Screening: https://www.cancer.org/cancer/vnpxe-aklcyo-owtwzd/slcxebcpk-cwcxclrrq-pfdgsqp/ac s-rec ommendations.html.; Jonah DK, Nayeli CR, Shayy WilsonK, Colorectal Cancer Screening: Recommendations for Physicians and Patients from the U.S. Multi-Society Task Force on Colorectal Cancer Screening , Am J Gastroenterology 2017; 112:3426-5615. TEST DESCRIPTION: Composite algorithmic analysis of stool DNA-biomarkers with hemoglobin immunoassay. Quantitative values of individual biomarkers are not reportable and are not associated with individual biomarker result reference ranges. Cologuard is intended for colorectal cancer screening of adults of either sex, 45 years or older, who are at average-risk for colorectal cancer (CRC). Cologuard has been approved for use by the U.S. FDA. The performance of Cologuard was established in a cross sectional study of average-risk adults aged 50-84. Cologuard performance in patients ages 45 to 49 years was estimated by sub-group analysis of near-age groups. Colonoscopies performed for a positive result may find as the most clinically significant lesion: colorectal cancer [4.0%], advanced adenoma (including sessile serrated polyps greater than or equal to 1cm diameter) [20%] or non- advanced adenoma [31%]; or no colorectal neoplasia [45%]. These estimates are derived from a prospective cross-sectional screening study of 10,000 individuals at average risk for colorectal cancer who were screened with both Cologuard and colonoscopy. (Valarie Perry et al, N Engl J Med 2014;370(14):5397-4994.) Cologuard may produce a false negative or false positive result (no colorectal cancer or precancerous polyp present at colonoscopy follow up). A negative Cologuard test result does not guarantee the absence of CRC or advanced adenoma (pre-cancer). The current Cologuard screening interval is every 3 years. ([place] Cancer Society and U.S. Multi-Society Task Force). Cologuard performance data in a 10,000 patient pivotal study using colonoscopy as the reference method can be accessed at the following location: www.PLASTIQ/results. Additional description of the Cologuard test process, warnings and precautions can be found at www.[employer] Technology[employer]uard.com. STOOL STOOL SPECIMEN / Unknown 04/02/2023 6:50 AM CHILLER TENDER 04/03/2023 6:23 PM CHILLER TENDER Camille LOWE BODY FLUIDS AND STOOLS ORDER MONTY Final Result [facility] ([facility]) [address] [place] [place] [address], [employer] (CLIA #:[id number]) [address] [place] [address] from Last 3 Months or Most Recently Relevant to Health Maintenance Insurance [employer] Care Teams Clean Rice Grader And Reel Tender Relationship Specialty [place] [address] [place], [place] [id number] PCP - General PHYSICIAN SECURITY TESTER 03/20/20
--- OUTSIDE RECORDS SUMMARY | 2025-02-05 08:34 | XMS_ITS | Encounter Summary ---
Author Organization [facility] Address [address] [place] [address] Care Team Providers Care Furniture Detailer Name Role Phone Camille Lang Primary Care Provider [phone] Encounter Details Date Type Department Care Team (Late st Contact Info) Description 06/09/2023 shoutr Message Enc [facility] Medical Group Family & Internal Medicine [facility] [id number] [place] [phone] [place] [address] [place] [address] Pelvic Ultrasound Social History Tobacco Use Types Packs/Day Years Used Date Smoking Tobacco: Never Passive Smoke Exposure: Never Smokeless Tobacco: Never Alcohol Use Standard Drinks/Week Comments Yes 0 (1 standard drink = 0.6 oz pur e alcohol) socially PHQ-2 Answer Date Recorded Patient Health Questionnaire-2 Score 0 03/26/2023 Comments No Sex and Gender Information Value Date Recorded Sex Assigned at Not on file Legal Sex Female 2:33 PM CDT Gender Identity Not on file Sexual Orientation Not on file documented as of this encounter Plan of Treatment Not on file documented as of this encounter Visit Diagnoses Diagnosis Benign-appearing endometrial cells on cervical cytology- Primary Other abnormal Papanicolaou smear of cervix and cervical HPV Medication side effect Unspecified adverse effect of unspecified drug, medicinal and biological substance documented in this encounter Additional Health Concerns Assessment Noted Time PHQ-9 Depression Total Score: 0 03/17/20 21 12:21 PM CDT documented as of this encounter Care Teams Furniture Detailer Relationship Specialty [place] [address] [place] [address] PCP - General PHYSICIAN WELL LOGGING MUD ANALYSIS CAPTAIN 03/20/20 documented as of this encounter
== END 2025-02-05 08:04 | disposition home or self-care (01) ==
LOC: ANHFOHIMG 08:04
PROVIDERS: PCP Physician Assistant; Visit Provider Physician Assistant
DX: Z12.31 Encounter for screening mammogram for malignant neoplasm of breast (principal)
CPT/HCPCS: 77063; 77067